=== PATIENT | male | born 1965 | race Caucasian/White ===

== ENCOUNTER 2022-05-13 16:41 | Emergency (ER) | payer BC ==
[2022-05-13] MEDS ORDERED: Albuterol/Ipratropium 3.0-0.5 MG/3 ML Neb Soln NEB ONE (17:25)
[2022-05-13] MEDS ORDERED: predniSONE 20 MG Tab PO ONE (17:25)
[2022-05-13] MEDS ORDERED: Azithromycin 500 MG Tab PO ONE (17:26)
== END 2022-05-13 18:00 | disposition home or self-care (01) ==
LOC: FB.ED 16:41
DX: J44.1 Chronic obstructive pulmonary disease with (acute) exacerbation (principal); F17.210 Nicotine dependence, cigarettes, uncomplicated; Z79.899 Other long term (current) drug therapy
CPT/HCPCS: 94640; 99284; A9270; J7512; J7620

== ENCOUNTER 2023-11-29 21:55 | Emergency (ER) | payer BC, MEDICAID ==
[2023-11-29] MEDS: Sulfamethoxazole/Trimethoprim 800-160 MG Tab PO ONE (23:39)
== END 2023-11-29 23:41 | disposition home or self-care (01) ==
LOC: FB.ED 21:55
DX: L73.9 Follicular disorder, unspecified (principal); J44.9 Chronic obstructive pulmonary disease, unspecified
CPT/HCPCS: 99283; A9270

== ENCOUNTER 2024-02-05 17:17 | Emergency (ER) | payer MEDICAID ==
[2024-02-05] MEDS ORDERED: Azithromycin 250 MG Tab PO ONE (17:18)
[2024-02-05] MEDS ORDERED: predniSONE 20 MG Tab PO ONE (17:18)
[2024-02-05] MEDS: Albuterol/Ipratropium 3.0-0.5 MG/3 ML Neb Soln NEB ONE (18:22)
[2024-02-05 18:36] LABS: BASOPHILS PERCENT AUTO 0.5 % (0.3-3.8); EOSINOPHILS ABSOLUTE AUTO 0.3 x10-3/uL (0.0-0.6); EOSINOPHILS PERCENT AUTO 5.7 % (0.1-6.8); HEMOGLOBIN 12.7 g/dL (12.9-17.7); LYMPHOCYTES ABSOLUTE AUTO 1.3 x10-3/uL (0.5-4.5); LYMPHOCYTES PERCENT AUTO 27.1 % (15.8-45.3); MEAN CORPUSCULAR HEMOGLOBIN 30.3 pg (27.0-33.3); MEAN CORPUSCULAR HGB CONC 33.3 g/dL (28.7-35.3); MEAN CORPUSCULAR VOLUME 91.1 fL (80.8-98.7); MEAN PLATELET VOLUME 8.7 fL (6.7-11.0); MONOCYTES ABSOLUTE AUTO 0.4 x10-3/uL (0.0-1.2); MONOCYTES PERCENT AUTO 8.7 % (5.5-15.2); NEUTROPHILS ABSOLUTE AUTO 2.7 x10-3/uL (1.7-6.9); PLATELET COUNT,PLT 213 x10(3)uL (117-477); RED BLOOD CELL COUNT 4.17 x10(6)uL (3.90-5.90); WHITE BLOOD CELL COUNT,WBC 4.7 x10-3/uL (3.2-10.1)
[2024-02-05 18:40] LABS: BLOOD UREA NITROGEN,BUN 15 mg/dL (7-18); BUN/CREATININE RATIO 16.7 (9-20); CALCIUM 8.7 mg/dL (8.6-10.2); CARBON DIOXIDE,CO2 30 mmol/L (21-32); CHLORIDE,CL 102 mmol/L (100-110); CREATININE 0.9 mg/dL (0.70-1.30); EST CRCL DRUG DOSING (CG) 94.63 mL/min; ESTIMATED GFR 100 mL/min (>60); GLUCOSE RANDOM 100 mg/dL (80-116); SODIUM,NA 137 mmol/L (135-145)
== END 2024-02-05 19:15 | disposition home or self-care (01) ==
LOC: FB.ED 17:17
DX: J40 Bronchitis, not specified as acute or chronic (principal); F17.210 Nicotine dependence, cigarettes, uncomplicated; Z21 Asymptomatic human immunodeficiency virus [HIV] infection status
CPT/HCPCS: 36415; 71045; 80048; 83605; 85025; 85379; 86140; 99285; A9270; J7512; J7620